=== PATIENT | female | born 1995 | race Caucasian/White ===

== ENCOUNTER → 2023-05-22 10:40 | Outpatient (REF) | payer BC, SELFPAY ==
[2023-05-26 11:46] LABS: HPV, High Risk Not Detected; HPV, High Risk Source Anal
== END ==
LOC: CLAB 10:40
PROVIDERS: ATTENDING PHYSICIAN Physician Assistant
DX: Z72.51 High risk heterosexual behavior (principal)
CPT/HCPCS: 87624; 88112